=== PATIENT | female | born 1970 | race Caucasian/White ===

== ENCOUNTER → 2019-11-20 | Outpatient (REF) | payer OTHER ==
[~2019-11-20] MED LIST: ANEXIA OR; CELE40TA OR; LEVA500T OR; PROT20TA11 OR
[2019-11-20 12:10] LABS: BLOOD UREA NITROGEN 8 MG/DL (7-18); CALCIUM LEVEL 9.1 MG/DL (8.5-10.1); CARBON DIOXIDE LEVEL 30 MEQ/L (21-32); CHLORIDE LEVEL 102 MEQ/L (98-107); CHOLESTEROL LEVEL 242 MG/DL (<200); CHOLESTEROL RISK RATIO 5.627 (<5); CREATININE FOR GFR 0.75 MG/DL (0.55-1.30); GLOMERULAR FILTRATION RATE > 60.0 (>51); GLUCOSE, FASTING 97 MG/DL (70-100); HDL CHOLESTEROL 43 MG/DL (>40); LDL CHOLESTEROL 137 MG/DL (<100); NON-HDL-C 199 MG/DL; POTASSIUM SERUM 4.3 MEQ/L (3.5-5.1); SODIUM LEVEL 139 MEQ/L (136-145); TRIGLYCERIDES LEVEL 308 MG/DL (<150)
== END ==
LOC: M SFHCPLAZ 08:54
PROVIDERS: ATTEND Family Medicine
DX: Z13.220 Encounter for screening for lipoid disorders (principal); Z13.1 Encounter for screening for diabetes mellitus

== ENCOUNTER → 2021-03-16 | Outpatient (CLI) | payer BC ==
--- NOTE | 2021-03-16 15:57 | REPMRS ---
Patient History The patient states she had a clinical breast exam on 02-28-2021. Family history of breast cancer at age 55 in father, breast cancer at age 55 in paternal uncle. No Hormone Replacement Therapy Patient states no breast complaints today. Patient has signed MRS History Sheet. Digital Woman Screen Mammo: March 16, 2021 - Exam #: [id number] Bilateral CC and MLO view(s) were taken. Technologist: Loren Schaefer, Photographic Equipment Assembler Prior study comparison: December 14, 2019, bilateral screening mammogram, performed at [facility]. February 25, 2019, bilateral screening 3D/tomosynthesis, performed at [facility]. November 22, 2009, bilateral screening mammogram, performed at [facility]. FINDINGS: The breast tissue is heterogeneously dense. This may lower the sensitivity of mammography. Screening. Digital screening (2D) mammography was performed bilaterally in the CC and MLO projections. Additionally, breast tomosynthesis (3D mammography) was performed bilaterally in the CC and MLO projections. Todays exam was compared to the prior exams. By history, the patient has no complaints of a palpable breast abnormality or other significant breast complaints. The breasts are unchanged in size and shape.Once again, dense heterogenous fibroglandular elements are seen bilaterally in a stable appearing pattern but to such a degree that the sensitivity of the mammogram in detecting cancer is decreased. There are no evelina-soft tissue densities or spiculated masses. There is no internal architectural distortion. There are no suspicious evelina-calcific clusters. Skin thickening or nipple retraction is not present. IMPRESSION: BI-RADS Category 2- Benign Findings. There is no evidence of malignant alteration of the breasts. Followup examination recommended in one year. The Volpara volumetric breast density category is C, the breasts are heterogenously dense which may obscure small masses. This mammogram was read with the assistance of [employer],an FDA approved computer aided detection system for mammography. The lifetime Tyrer-Cuzick score is 24.7 % Negative x-ray reports should not delay surgical consultation if a dominant or clinically suspicious mass is present. Not all breast cancers can be identified by mammography. Therefore, we recommend that you continue to perform regular breast self-examination and physical examination and then promptly contact your physician of any concerns or changes. Adenosis and dense breasts may obscure an underlying neoplasm. Assessment: BI-RADS/ACR category 2 mammogram. Benign Findings. Recommendation Routine screening mammogram of both breasts in 1 year. Electronically Signed By: Davidson Donaldson DO 03/16/21 [id number]
--- NOTE | 2021-03-16 17:13 | DEXAMM ---
INDICATION: Z13.820 SCR FOR OSTEOPOROSIS. COMPARISON: None. TECHNIQUE: Bone density was measured using dual-energy x-ray absorptiometry (DEXA). FINDINGS: AP SPINE L1-L4 BMD 1.623 g/cm2 Young Adult T-Score 3.5 Age Matched Z-Score 4.0. LT FEMUR, TOTAL BMD 1.194 g/cm2 Young Adult T-Score 1.5 Age Matched Z-Score 52.0. LT NECK BMD 1.049 g/cm2 Young Adult T-Score 0.1 Age Matched Z-Score 0.9. RT FEMUR, TOTAL BMD 1.184 g/cm2 Young Adult T-Score 1.4 Age Matched Z-Score 1.9. RT NECK BMD 1.047 g/cm2 Young Adult T-Score 0.1 Age Matched Z-Score 0.9. IMPRESSION: There is normal bone density of the spine. There is normal bone density of the left hip. There is normal bone density of the right hip. FOLLOW-UP: Recommendation for the next bone density exam: 5 years. <Electronically signed by Owen Cuenca > 03/16/21 [id number]
== END ==
LOC: M WHC 14:42
PROVIDERS: ATTEND Advanced Practice Midwife
DX: Z12.31 Encounter for screening mammogram for malignant neoplasm of breast (principal); Z13.820 Encounter for screening for osteoporosis

== ENCOUNTER → 2021-06-13 | Outpatient (CLI) | payer BC ==
--- NOTE | 2021-06-13 09:01 | REP ---
INDICATION: RADICULOPATHY. COMPARISON: None. TECHNIQUE: Routine as well as flexion and extension views were obtained FINDINGS: There is 5 mm retrolisthesis C4 on C5, C5 on C6 and C6 on C7. There is narrowing of the C4-5, C5-6 C6-7 disc spaces. Also at these levels is facet arthropathy and osteophyte formation. There are no fractures. On the dynamic views there is instability at the C4-5, C5-6 and C6-7 levels. Foraminal encroachment is present at the C6-7 and C7-T1 levels bilaterally. The upper lungs are clear. IMPRESSION: Multilevel listhesis/spondylosis, foraminal encroachment and instability. No fractures. <Electronically signed by Gideon Maciel > 06/13/21 [id number]
== END ==
LOC: M SOG 08:29
PROVIDERS: ATTEND Orthopaedic Surgery Sports Medicine
DX: M47.22 Other spondylosis with radiculopathy, cervical region (principal)

== ENCOUNTER → 2021-08-21 | Outpatient (CLI) | payer BC, OTHER ==
--- NOTE | 2021-08-21 20:12 | REP ---
INDICATION: RLQ PAIN COMPARISON: None TECHNIQUE: Real time B-mode ultrasound examination using curved array transducer. FINDINGS: Bladder is normal in appearance without wall thickening or mass lesion. Bilateral ureteral jets are identified. Prevoid bladder measures 16.7 x 9.0 x 10.4 cm (1021 cc). Postvoid bladder measures 3.0 x 3.7 x 1.9 cm (14 cc). Postvoid residual: 1.4% IMPRESSION: 1. Normal bladder ultrasound. <Electronically signed by Zain Bolton > 08/21/[id number]
== END ==
LOC: M RAD 16:00
PROVIDERS: ATTEND Student in an Organized Health Care Education/Training Program
DX: R10.31 Right lower quadrant pain (principal)

== ENCOUNTER → 2022-06-08 | Outpatient (CLI) | payer BC, OTHER | LOC: M PLALAB 09:18 | PROVIDERS: ATTEND Student in an Organized Health Care Education/Training Program | DX: M25.562 Pain in left knee (principal); M17.12 Unilateral primary osteoarthritis, left knee ==

== ENCOUNTER → 2022-10-17 | Outpatient (CLI) | payer OTHER ==
[2022-10-17 13:46] LABS: BASO # 0.1 10^3/uL (0.0-0.2); BASO % 1.1 % (0.0-1.0); EOS # 0.3 10^3/uL (0.0-0.5); EOS % 3.9 % (0.0-3.0); HEMATOCRIT 48.2 % (36.0-47.0); HEMOGLOBIN 15.3 g/dl (12.0-15.5); LYMPH % 26.8 % (24.0-44.0); MEAN CORPUSCULAR HEMOGLOBIN 28.5 pg (27.0-33.0); MEAN CORPUSCULAR HGB CONC 31.7 g/dl (32.0-36.5); MEAN CORPUSCULAR VOLUME 89.9 fl (80.0-96.0); MONO # 0.5 10^3/uL (0.0-0.8); MONO % 6.9 % (2.0-8.0); NEUTROPHILS # 4.5 10^3/uL (1.5-8.5); NEUTROPHILS % 60.8 % (36.0-66.0); PLATELET COUNT, AUTOMATED 253 10^3/uL (150-450); RED BLOOD COUNT 5.36 10^6/uL (4.00-5.40); WHITE BLOOD COUNT 7.4 10^3/uL (4.0-10.0)
[2022-10-17 13:51] LABS: FREE T4 1.04 NG/DL (0.89-1.76)
[2022-10-17 13:52] LABS: TOTAL 25(OH) VITAMIN D 25.5 NG/ML (20.0-100.0)
[2022-10-17 13:53] LABS: ALBUMIN 3.4 G/DL (3.2-5.2); ALKALINE PHOSPHATASE 81 U/L (46-116); ALT/SGPT 16 U/L (7.0-40); AST/SGOT 15 U/L (<34); BILIRUBIN,TOTAL 0.2 MG/DL (0.3-1.2); BLOOD UREA NITROGEN 11 MG/DL (9-23); CALCIUM LEVEL 8.7 MG/DL (8.5-10.1); CARBON DIOXIDE LEVEL 30 MMOL/L (20-31); CHLORIDE LEVEL 107 MMOL/L (98-107); CHOLESTEROL LEVEL 230 MG/DL (<200); CHOLESTEROL RISK RATIO 5.27 (<5); CREATININE FOR GFR 0.74 MG/DL (0.55-1.30); GLOMERULAR FILTRATION RATE > 60.0 (>51); GLUCOSE, FASTING 89 MG/DL (60-100); HDL CHOLESTEROL 43.6 MG/DL (>40); LDL CHOLESTEROL 151.4 MG/DL (<100); NON-HDL-C 186 MG/DL; POTASSIUM SERUM 4.6 MMOL/L (3.5-5.1); SODIUM LEVEL 141 MMOL/L (136-145); TOTAL PROTEIN 6.9 G/DL (5.7-8.2); TRIGLYCERIDES LEVEL 175 MG/DL (<150)
[2022-10-17 14:25] LABS: HEMOGLOBIN A1c 5.3 % (4.0-6.0)
== END ==
LOC: M PLALAB 09:38
PROVIDERS: ATTEND Student in an Organized Health Care Education/Training Program
DX: Z00.00 Encounter for general adult medical examination without abnormal findings (principal); N95.1 Menopausal and female climacteric states; E66.9 Obesity, unspecified; Z68.41 Body mass index [BMI] 40.0-44.9, adult

== ENCOUNTER → 2023-09-11 | Outpatient (CLI) | payer OTHER | LOC: M PLAIMG 09:48 | PROVIDERS: ATTEND Physician Assistant | DX: J32.8 Other chronic sinusitis (principal) ==

== ENCOUNTER → 2023-09-24 | Outpatient (REF) | payer OTHER | LOC: M SFHCPLAZ 09:21 | PROVIDERS: ATTEND Student in an Organized Health Care Education/Training Program | DX: I10 Essential (primary) hypertension (principal); F32.1 Major depressive disorder, single episode, moderate ==

== ENCOUNTER → 2023-09-24 | Outpatient (CLI) | payer OTHER ==
[2023-09-24 13:38] LABS: BASO # 0.1 10^3/uL (0.0-0.2); EOS # 0.3 10^3/uL (0.0-0.5); EOS % 3.7 % (0.0-3.0); HEMOGLOBIN 14.3 g/dl (12.0-15.5); LYMPH # 2.3 10^3/uL (1.5-5.0); LYMPH % 28.6 % (24.0-44.0); MEAN CORPUSCULAR HEMOGLOBIN 29.2 pg (27.0-33.0); MEAN CORPUSCULAR HGB CONC 31.8 g/dl (32.0-36.5); MEAN CORPUSCULAR VOLUME 91.8 fl (80.0-96.0); MONO # 0.6 10^3/uL (0.0-0.8); MONO % 7.3 % (2.0-8.0); NEUTROPHILS # 4.8 10^3/uL (1.5-8.5); NEUTROPHILS % 58.9 % (36.0-66.0); PLATELET COUNT, AUTOMATED 269 10^3/uL (150-450); WHITE BLOOD COUNT 8.2 10^3/uL (4.0-10.0)
[2023-09-24 14:00] LABS: HEMOGLOBIN A1c 5.5 % (4.0-6.0)
[2023-09-24 14:02] LABS: CREATININE, URINE 101.1 MG/DL
[2023-09-24 14:04] LABS: MAU/CREAT RATIO 7.9 MCG/MG (0.0-30.0)
[2023-09-24 14:06] LABS: ALBUMIN 3.6 G/DL (3.2-5.2); ALKALINE PHOSPHATASE 83 U/L (46-116); ALT/SGPT 16 U/L (7.0-40); AST/SGOT 14 U/L (<34); BILIRUBIN,TOTAL 0.2 MG/DL (0.3-1.2); BLOOD UREA NITROGEN 9 MG/DL (9-23); CALCIUM LEVEL 9.5 MG/DL (8.5-10.1); CARBON DIOXIDE LEVEL 30 MMOL/L (20-31); CHLORIDE LEVEL 103 MMOL/L (98-107); CHOLESTEROL LEVEL 243 MG/DL (<200); CREATININE FOR GFR 0.75 MG/DL (0.55-1.30); FREE T4 0.95 NG/DL (0.89-1.76); GLOMERULAR FILTRATION RATE > 60.0 (>51); GLUCOSE, FASTING 91 MG/DL (60-100); HDL CHOLESTEROL 51.7 MG/DL (>40); LDL CHOLESTEROL 152.5 MG/DL (<100); NON-HDL-C 191.3 MG/DL; POTASSIUM SERUM 4.6 MMOL/L (3.5-5.1); SODIUM LEVEL 137 MMOL/L (136-145); THYROID STIMULATING HORMONE 2.477 uIU/ML (0.55-4.78); TOTAL PROTEIN 6.9 G/DL (5.7-8.2); TRIGLYCERIDES LEVEL 194 MG/DL (<150)
[2023-09-24 14:14] LABS: PROCALCITONIN <0.04 ng/ml
== END ==
LOC: M PLALAB 09:30
PROVIDERS: ATTEND Student in an Organized Health Care Education/Training Program
DX: I10 Essential (primary) hypertension (principal); F32.1 Major depressive disorder, single episode, moderate

== ENCOUNTER → 2024-12-02 | Outpatient (CLI) | payer OTHER | LOC: M WHC 14:23 | PROVIDERS: ATTEND Internal Medicine | DX: Z12.31 Encounter for screening mammogram for malignant neoplasm of breast (principal) ==